=== PATIENT | male | born 1955 | race Caucasian/White ===

== ENCOUNTER 2019-06-29 14:00 | Inpatient (IN) | payer OTHER ==
[2019-06-29 14:16] VITALS: BMI 39.5
[2019-06-29] MEDS ORDERED: SODIUM CHLORIDE 0.9% 500 ML INFUS.BAG IV ONE (14:20)
[2019-06-29] MEDS ORDERED: dilTIAZem HCL 50 MG/10 ML - 10 ML VIAL IVPUSH ONE (14:20)
[2019-06-29] MEDS ORDERED: dilTIAZem HCL 50 MG/10 ML - 10 ML VIAL ONE (14:39)
--- NOTE | 2019-06-29 14:43 | PDOC ---
History of Present Illness - General Chief Complaint: Lightheaded Stated Complaint: DIZZY WEAK OFF MEDS FOR WEEK Time Seen by Provider: 06/29/19 14:19 History Source: Patient Exam Limitations: No Limitations - History of Present Illness Initial Comments: 06/29/19 15:09 HPI 63-year-old male with history of morbid obesity, atrial fibrillation on Eliquis , hypertension, hyperlipidemia, diabetes on Januvia presenting with dizziness x1 month. Dizziness is associated with frequent falls but no syncope no head injury or LOC. He also notes chronic tingling in his extremities. He also endorses polyuria and polydipsia. He ran out of his medications including Januvia, Eliquis, metformin, lisinopril and metoprolol in the past 1 week. He went to see his primary care doctor today and was noted to be in atrial fibrillation rapid ventricular response. Denies fever, chills, chest pain, SOB, palpitation, N, V, D, abdominal pain, bladder and bowel problems, focal weakness/paresthesias, leg swelling/pain, rash. does not monitor blood sugar or blood pressure. Allergies: None Past Medical History/PSH: as above Social history: Lives with family. No tobacco, ETOH or drug use. Meds: as documented in EMR Family history: noncontributory PMD: Dr Holland Corrections Officer: none 06/29/19 15:11 06/29/19 15:16 06/29/19 17:22 Past History - Past Medical History Allergies/Adverse Reactions: Allergies Allergy/AdvReac Type Severity Reaction Status Date / Time No Known Allergies Allergy Unverified 06/29/19 14:05 Home Medications: Ambulatory Orders Apixaban [Eliquis] 5 mg PO BID 06/29/19 Lisinopril [Prinivil] 5 mg PO DAILY 06/29/19 Metoprolol Succinate [Toprol Xl] 50 mg PO BID 06/29/19 Sitagliptin Phosphate [Januvia] 100 mg PO DAILY 06/29/19 metFORMIN HCL [Metformin HCl] 1,000 mg PO BID 06/29/19 Cardiac Disorders: Yes (A FIB) COPD: No Diabetes: Yes - Psycho Social/Smoking Cessation Hx Smoking History: Never smoked Information on smoking cessation initiated: No Hx Alcohol Use: Yes (RARELY SOCIAL) Drug/Substance Use Hx: No Review of Systems - Review of Systems Able to Perform ROS?: Yes Comments:: 06/29/19 17:22 Review of systems Constitutional: no fevers or chills. No weakness HEENT: no headache No visual/hearing disturbances. +dizziness. CVS: no cp or syncope. no palpitations. Resp: no sob. No cough. Gastrointestinal: no abdominal pain, nausea, vomiting, diarrhea. Genitourinary: no urinary sx, hematuria. no incontinence or retention. MUSCULOSKELETAL: No joint pain and swelling. No neck or back pain. SKIN: no redness or skin changes, no discharge, no rash. No wounds. Hematologic: no easy bruising/bleeding. NEUROLOGIC: No headache, LOC or altered mental status. No weakness, +chronic extremity numbness or tingling. Endocrine: +polyuria, +polydypsia. +hyperglycemia. Allergic/Immunologic: no allergies All other systems reviewed and negative, or as documented in HPI. *Physical Exam - Vital Signs Last Vital Signs Temp Pulse Resp BP Pulse Ox 98.1 F 108 H 20 127/85 97 06/29/19 14:03 06/29/19 15:00 06/29/19 15:00 06/29/19 15:00 06/29/19 14:46 - Physical Exam 06/29/19 17:22 Physical exam General: Well appearing, awake and alert, NAD. HEENT: NCAT, PERRL, EOMI, clear conjunctiva, anicteric, moist mucus membranes, clear oropharynx, no oral lesions.. Neck: neck supple, FROM Resp: CTAB, normal and even respirations, no respiratory distress CVS: RRR, no murmurs, 2+ peripheral pulses throughout, no peripheral edema Abdomen: soft, morbidly obese, nontender, abdominal striae. no rebound or guarding. Back: nontender, normal inspection and ROM MSK: no edema, WHITE x4, ROM intact. No clubbing or cyanosis. normal bulk and tone. Extremities: no calf tenderness Neuro: alert, oriented appropriately; no focal neurologic deficits Psych: Calm and cooperative Skin: warm and well perfused, cap refill <2 sec, normal color, no rash or skin discoloration. Heart Score/ECG Review #1 ECG reviewed & interpreted by me at: 14:20 Compared to previous ECG there are: Previous ECG unavail 06/29/19 15:12 EKG atrial fibrillation at RVR, 158 bpm, no interval abnormalities, narrow QRS, ST and T wave segments and morphology normal. Nonspecific T wave abnormalities, likely rate related. ED Treatment Course - LABORATORY CBC & Chemistry Diagram: 06/29/19 14:30 06/29/19 14:30 - ADDITIONAL ORDERS Additional order review: Laboratory Results 06/29/19 06/29/19 06/29/19 14:30 14:30 14:30 PT with INR 12.1 INR 1.08 PTT (Actin FS) 29.5 Sodium 131 L Potassium 4.2 Chloride 101 Carbon Dioxide 22 Anion Gap 8 BUN 19.0 H Creatinine 0.9 Est GFR (CKD-EPI)AfAm 106.46 Est GFR (CKD-EPI)NonAf 91.86 Random Glucose 311 H Calcium 9.1 Magnesium 1.8 Total Bilirubin 1.1 H AST 18 ALT 21 Alkaline Phosphatase 64 Creatine Kinase 113 Troponin I < 0.03 Total Protein 6.9 Albumin 4.0 06/29/19 14:30 RBC 5.67 H MCV 86.9 MCHC 33.7 RDW 12.6 MPV 9.6 Neutrophils % 66.1 Lymphocytes % 21.7 Monocytes % 8.8 Eosinophils % 2.9 Basophils % 0.5 - RADIOLOGY Radiology Studies Ordered: Category Date Time Status CHEST X-RAY PORTABLE* [RAD] Stat Radiology 06/29/19 15:08 Taken Radiograph Interpretation: 06/29/19 16:00 Interpreted by ED Physician: CXR (2 view): no acute abnormality: no infiltrates , bones appear intact and structures normal alignment, cardiac silhouette within normal limits. no free air under diaphragm, no pneumothorax. Cardiomegaly, low lung volumes could be habitus or inspiratory related, changed from prior in 2009 - Medications Given in the ED: ED Medications Discontinued Medications Generic Name Dose Route Start Last Admin Trade Name Freq PRN Reason Stop Dose Admin Diltiazem HCl 20 mg 06/29/19 14:20 06/29/19 14:45 Cardizem Injection - IVPUSH 06/29/19 14:21 20 mg ONCE ONE Administration Lisinopril 5 mg 06/29/19 16:28 06/29/19 16:45 Prinivil PO 06/29/19 16:29 5 mg ONCE ONE Administration Metformin HCl 1,000 mg 06/29/19 16:28 06/29/19 16:45 Glucophage - PO 06/29/19 16:29 1,000 mg ONCE ONE Administration Metoprolol Tartrate 50 mg 06/29/19 16:29 06/29/19 16:46 Lopressor - PO 06/29/19 16:30 50 mg ONCE ONE Administration Sodium Chloride 1,000 ml 06/29/19 14:20 06/29/19 14:37 Normal Saline - IV 06/29/19 14:21 1,000 ml ONCE ONE Administration Medical Decision Making - Medical Decision Making 06/29/19 15:12 Vital Signs Temp Pulse Resp BP Pulse Ox 98.1 F 108 H 20 127/85 97 06/29/19 14:03 06/29/19 15:00 06/29/19 15:00 06/29/19 15:00 06/29/19 14:46 Vital signs notable for normal tension, no respiratory distress. However he is in atrial fibrillation RVR, up to 140 to 160 bpm. Patient has no acute symptoms including chest pain or shortness of breath, no syncope. He has been having dizziness over the past 1 month and is been associated with frequent falls but no head injury or LOC. No altered mental status or seizure activity, defer CT imaging at this time. We will rate control with diltiazem IV. BP will allow for it. We will also reinitiate his home medications as he has been off of them for about 1 week as likely contributors for his symptoms. restarted on his home meds, Eliquis 5mg, lisinopril 5mg, januvia 100mg, metformin 1000mg, metoprolol 50mg x1 dose labs and lytes wnl. trop neg. +hyperglycemic >300, given fluids, and recheck BGM. Cr and remainder of lytes are wnl. no evidence to suggest HHS or DKA, no infectious sx. no cardiopulmonary sx. Will admit to hospitalist service for medical management of A. fib RVR, cardiology consultation, telemetry, close monitoring and reinitiation of his medications. 06/29/19 16:35 06/29/19 16:36 Discharge - Discharge Information Problems reviewed: Yes Clinical Impression/Diagnosis: Atrial fibrillation with rapid ventricular response, Hyperglycemia Condition: Guarded - Admission Yes - Follow up/Referral Referrals: Kevin Holland MD [Primary Care Provider] - - Patient Discharge Instructions - Post Discharge Activity
[2019-06-29 15:39] LABS: BASO % 0.5 % (0-2.0); EOS % 2.9 % (0-4.5); HEMATOCRIT 49.2 % (35.4-49); HEMOGLOBIN 16.6 GM/dl (11.7-16.9); LYMPH % 21.7 % (8-40); MCH 29.3 pg (25.7-33.7); MCHC 33.7 g/dl (32.0-35.9); MEAN CELL VOLUME 86.9 fl (80-96); MEAN PLT VOLUME 9.6 fl (7.5-11.1); MONO % 8.8 % (3.8-10.2); NEUT % 66.1 % (42.8-82.8); PLATELET COUNT 212 K/MM3 (134-434); RBC 5.67 M/mm3 (4.00-5.60); RDW 12.6 % (11.9-15.9); WHITE BLOOD COUNT 6.8 K/mm3 (4.0-10.8)
[2019-06-29 15:47] LABS: BILIRUBIN,TOTAL 1.1 mg/dl (0.2-1); CALCIUM 9.1 mg/dl (8.5-10); CREATININE 0.9 mg/dl (0.55-1.3); MAGNESIUM 1.8 mg/dL (1.8-2.4); POTASSIUM 4.2 mmol/L (3.5-5.1); TOT PROT 6.9 g/dl (6.4-8.2)
[2019-06-29 15:51] LABS: ACTIVATED PTT 29.5 SECONDS (25.2-36.5)
[2019-06-29 15:55] LABS: INR 1.08 (0.82-1.09); PROTHROMBIN TIME (PATIENT) 12.1 SEC (10.2-13.0)
[2019-06-29] MEDS ORDERED: metFORMIN HCL 500 MG TABLET (FP) PO ONE (16:28)
[2019-06-29] MEDS ORDERED: LISINOPRIL 5 MG TABLET (FP) PO ONE (16:28)
[2019-06-29] MEDS ORDERED: METOPROLOL TARTRATE 50 MG TABLET (FP) PO ONE (16:29)
[2019-06-29] MEDS ORDERED: metFORMIN HCL 500 MG TABLET (FP) ONE (16:42)
[2019-06-29] MEDS ORDERED: LISINOPRIL 5 MG TABLET (FP) ONE (16:42)
[2019-06-29] MEDS ORDERED: METOPROLOL TARTRATE 50 MG TABLET (FP) ONE (16:43)
--- NOTE | 2019-06-29 17:07 | HP ---
CHIEF COMPLAINT: Dizziness PCP: Dr. Holland HISTORY OF PRESENT ILLNESS: 63 year-old male with a PMH significant for HTN, HLD, atrial fibrillation on Eliquis, Type II NIDDM, and morbid obesity. Patient reports dizziness x1 month. He has been experiencing frequent falls without syncope, LOC, or head trauma. He also notes chronic tingling in his extremities. He endorses polyuria and polydipsia. In the past week, he ran out of his medications including Januvia, Eliquis, metformin, lisinopril and metoprolol. He went to see his PCP and was noted to be in atrial fibrillation with rapid ventricular response. He was sent to the ED. Denies fever, chills, chest pain, SOB, palpitation, N, V, D, abdominal pain, bladder and bowel problems, focal weakness/paresthesias, leg swelling/pain, rash. ER course was notable for: (1) HR 140, BP stable 138/84 (2) Diltiazem IVP 20mg x 1; metoprolol PO 50mg x 1 Recent Travel: No PAST MEDICAL HISTORY: Hypertension Hyperlipidemia Atrial fibrillation Type II NIDDM PAST SURGICAL HISTORY: None reported Social History: , lives with , 2 children, new grandchild; works for the [employer] Smoking: never Alcohol: rare Drugs: no Family history: other a&w 75; father a&w 80; 5 siblings Allergies No Known Allergies Allergy (Unverified 06/29/19 14:05) HOME MEDICATIONS: Home Medications Medication Instructions Recorded Apixaban [Eliquis] 5 mg PO BID 06/29/19 Lisinopril [Prinivil] 5 mg PO DAILY 06/29/19 Metoprolol Succinate [Toprol Xl] 50 mg PO BID 06/29/19 Sitagliptin Phosphate [Januvia] 100 mg PO DAILY 06/29/19 metFORMIN HCL [Metformin HCl] 1,000 mg PO BID 06/29/19 REVIEW OF SYSTEMS CONSTITUTIONAL: Absent: fever, chills, diaphoresis, generalized weakness, malaise, loss of appetite, weight change HEENT: Absent: rhinorrhea, nasal congestion, throat pain, throat swelling, difficulty swallowing, mouth swelling, ear pain, eye pain, visual changes CARDIOVASCULAR: Absent: chest pain, syncope, palpitations, irregular heart rate, lightheadedness , peripheral edema RESPIRATORY: Absent: cough, shortness of breath, dyspnea with exertion, orthopnea, wheezing, stridor, hemoptysis GASTROINTESTINAL: Absent: abdominal pain, abdominal distension, nausea, vomiting, diarrhea, constipation, melena, hematochezia GENITOURINARY: Absent: dysuria, frequency, urgency, hesitancy, hematuria, flank pain, genital pain MUSCULOSKELETAL: Absent: myalgia, arthralgia, joint swelling, back pain, neck pain SKIN: Absent: rash, itching, pallor HEMATOLOGIC/IMMUNOLOGIC: Absent: easy bleeding, easy bruising, lymphadenopathy, frequent infections ENDOCRINE: +polyuria, polydipsia Absent: unexplained weight gain, unexplained weight loss, heat intolerance, cold intolerance NEUROLOGIC: +dizziness, extremity parasthesias, frequent falls Absent: headache, seizure, mental status changes, bladder or bowel incontinence PSYCHIATRIC: Absent: anxiety, depression, suicidal or homicidal ideation, hallucinations. PHYSICAL EXAMINATION Vital Signs - 24 hr 06/29/19 06/29/19 06/29/19 14:03 14:46 14:49 Temperature 98.1 F Pulse Rate 79 Pulse Rate [ 140 H 118 H Apical] Respiratory 20 20 Rate Blood Pressure 126/90 Blood Pressure 138/84 [Left Arm] O2 Sat by Pulse 98 97 Oximetry (%) 06/29/19 15:00 Temperature Pulse Rate Pulse Rate [ 108 H Apical] Respiratory 20 Rate Blood Pressure Blood Pressure 127/85 [Left Arm] O2 Sat by Pulse Oximetry (%) GENERAL: Awake, alert, and fully oriented, in no acute distress. Obese. LUNGS: Breath sounds equal, clear to auscultation bilaterally. No wheezes, and no crackles. No accessory muscle use. HEART: Irregular S1, S2 ABDOMEN: Soft, nontender, not distended MUSCULOSKELETAL: Normal range of motion at all joints. No bony deformities or tenderness. No CVA tenderness. UPPER EXTREMITIES: 2+ pulses, warm, well-perfused. No cyanosis. No clubbing. No peripheral edema. LOWER EXTREMITIES: 2+ pulses, warm, well-perfused. No calf tenderness. No peripheral edema. NEUROLOGICAL: Cranial nerves II-XII intact. Normal speech. Laboratory Results - last 24 hr 06/29/19 06/29/19 06/29/19 14:30 14:30 14:30 WBC 6.8 RBC 5.67 H Hgb 16.6 Hct 49.2 H MCV 86.9 MCH 29.3 MCHC 33.7 RDW 12.6 Plt Count 212 MPV 9.6 Absolute Neuts (auto) 4.5 Neutrophils % 66.1 Lymphocytes % 21.7 Monocytes % 8.8 Eosinophils % 2.9 Basophils % 0.5 PT with INR INR PTT (Actin FS) Sodium 131 L Potassium 4.2 Chloride 101 Carbon Dioxide 22 Anion Gap 8 BUN 19.0 H Creatinine 0.9 Est GFR (CKD-EPI)AfAm 106.46 Est GFR (CKD-EPI)NonAf 91.86 Random Glucose 311 H Calcium 9.1 Magnesium 1.8 Total Bilirubin 1.1 H AST 18 ALT 21 Alkaline Phosphatase 64 Creatine Kinase 113 Troponin I < 0.03 Total Protein 6.9 Albumin 4.0 06/29/19 14:30 WBC RBC Hgb Hct MCV MCH MCHC RDW Plt Count MPV Absolute Neuts (auto) Neutrophils % Lymphocytes % Monocytes % Eosinophils % Basophils % PT with INR 12.1 INR 1.08 PTT (Actin FS) 29.5 Sodium Potassium Chloride Carbon Dioxide Anion Gap BUN Creatinine Est GFR (CKD-EPI)AfAm Est GFR (CKD-EPI)NonAf Random Glucose Calcium Magnesium Total Bilirubin AST ALT Alkaline Phosphatase Creatine Kinase Troponin I Total Protein Albumin ASSESSMENT/PLAN 63 year-old male with a PMH significant for HTN, HLD, atrial fibrillation on Eliquis, Type II NIDDM, and morbid obesity. Admitted for afib with RVR. Atrial fibrillation with RVR --afib is chronic but off meds so rate to 140 on admission; in ED given diltiazem IVP 20mg x 1 and metoprolol PO 50mg x 1, and rate improved to 100s; patient is asymptomatic --restart home lisinopril, Toprol XL --telemetry monitoring --continue Eliquis Hypertension --continue lisinopril, ToprolXL Hyperlipidemia --not on statin therapy Type II NIDDM --Novolog sliding scale coverage DVT prophylaxis: continue Eliquis Visit type - Emergency Visit Emergency Visit: Yes ED Registration Date: 06/29/19 Care time: The patient presented to the Emergency Department on the above date and was hospitalized for further evaluation of their emergent condition. - New Patient This patient is new to me today: Yes Date on this admission: 07/03/19 - Critical Care Critical Care patient: No
[2019-06-29] MEDS ORDERED: APIXABAN 5 MG TABLET PO SCH (22:00)
[2019-06-29] MEDS: metoPROLOL SUCCINATE 25 MG TAB.SR.24H (FP) PO SCH (22:09)
[2019-06-29] MEDS: APIXABAN 5 MG TABLET PO SCH (22:09)
[2019-06-29] MEDS ORDERED: INSULIN (NOVOLOG) ASPART 100 UNITS/ML 10ML VIAL ONE (23:26)
[2019-06-29] MEDS: INSULIN SLIDING SCALE (NOVOLOG) 1 VIAL SQ SCH (23:31)
[2019-06-30] MEDS ORDERED: MAGNESIUM SULF 50% (8.12 MEQ/2 ML-1 GM VIAL) IVPB ONE (00:40)
[2019-06-30] MEDS ORDERED: MAGNESIUM SULF 50% (8.12 MEQ/2 ML-1 GM VIAL) ONE (01:38)
[2019-06-30] MEDS: INSULIN SLIDING SCALE (NOVOLOG) 1 VIAL SQ SCH ×2 (07:49→12:59)
[2019-06-30 07:53] LABS: ALBUMIN 3.7 g/dl (3.4-5.0); BILIRUBIN,TOTAL 1.1 mg/dl (0.2-1); CALCIUM 8.8 mg/dl (8.5-10); MAGNESIUM 1.9 mg/dL (1.8-2.4); POTASSIUM 4.5 mmol/L (3.5-5.1); TOT PROT 6.4 g/dl (6.4-8.2)
[2019-06-30 08:08] LABS: BASO % 0.4 % (0-2.0); EOS % 3.6 % (0-4.5); HEMATOCRIT 46.8 % (35.4-49); HEMOGLOBIN 15.4 GM/dl (11.7-16.9); LYMPH % 23.9 % (8-40); MCH 28.9 pg (25.7-33.7); MCHC 32.8 g/dl (32.0-35.9); MEAN PLT VOLUME 9.7 fl (7.5-11.1); MONO % 8.6 % (3.8-10.2); NEUT % 63.5 % (42.8-82.8); PLATELET COUNT 197 K/MM3 (134-434); RBC 5.32 M/mm3 (4.00-5.60); RDW 12.7 % (11.9-15.9); WHITE BLOOD COUNT 5.6 K/mm3 (4.0-10.8)
[2019-06-30 08:21] LABS: ACTIVATED PTT 34.1 SECONDS (25.2-36.5)
[2019-06-30 08:26] LABS: INR 1.28 (0.82-1.09); PROTHROMBIN TIME (PATIENT) 14.3 SEC (10.2-13.0)
[2019-06-30 09:07] VITALS: TEMP 98.3
[2019-06-30] MEDS ORDERED: LISINOPRIL 5 MG TABLET (FP) PO SCH (10:00)
[2019-06-30] MEDS: metoPROLOL SUCCINATE 25 MG TAB.SR.24H (FP) PO SCH (10:54)
[2019-06-30] MEDS: APIXABAN 5 MG TABLET PO SCH (10:54)
[2019-06-30 14:10] VITALS: BP 134/51; PULSE 109
--- NOTE | 2019-06-30 14:30 | DS ---
Physical Exam: SUBJECTIVE: Patient seen and examined OBJECTIVE: Vital Signs Period Temp Pulse Resp BP Sys/Wright Pulse Ox Last 24 Hr 97.2 F-98.3 F 84-140 14-20 113-138/51-94 96-100 PHYSICAL EXAM GENERAL: The patient is awake, alert, and fully oriented, in no acute distress. HEAD: Normal with no signs of trauma. EYES: PERRL, extraocular movements intact, sclera anicteric, conjunctiva clear. ENT: Ears normal, nares patent, oropharynx clear without exudates, moist mucous membranes. NECK: Trachea midline, full range of motion, supple. LUNGS: Breath sounds equal, clear to auscultation bilaterally, no wheezes, no crackles, no accessory muscle use. HEART: Regular rate and rhythm, S1, S2 without murmur, rub or gallop. ABDOMEN: Soft, nontender, nondistended, normoactive bowel sounds, no guarding, no rebound, no hepatosplenomegaly, no masses. EXTREMITIES: 2+ pulses, warm, well-perfused, no edema. NEUROLOGICAL: Cranial nerves II through XII grossly intact. Normal speech, gait not observed. PSYCH: Normal mood, normal affect. SKIN: Warm, dry, normal turgor, no rashes or lesions noted. LABS Laboratory Results - last 24 hr 06/29/19 06/29/19 06/29/19 14:30 14:30 14:30 WBC 6.8 RBC 5.67 H Hgb 16.6 Hct 49.2 H MCV 86.9 MCH 29.3 MCHC 33.7 RDW 12.6 Plt Count 212 MPV 9.6 Absolute Neuts (auto) 4.5 Neutrophils % 66.1 Lymphocytes % 21.7 Monocytes % 8.8 Eosinophils % 2.9 Basophils % 0.5 PT with INR INR PTT (Actin FS) Sodium 131 L Potassium 4.2 Chloride 101 Carbon Dioxide 22 Anion Gap 8 BUN 19.0 H Creatinine 0.9 Est GFR (CKD-EPI)AfAm 106.46 Est GFR (CKD-EPI)NonAf 91.86 POC Glucometer Random Glucose 311 H Hemoglobin A1c % Calcium 9.1 Magnesium 1.8 Total Bilirubin 1.1 H AST 18 ALT 21 Alkaline Phosphatase 64 Creatine Kinase 113 Troponin I < 0.03 Total Protein 6.9 Albumin 4.0 06/29/19 06/29/19 06/30/19 14:30 23:18 07:08 WBC RBC Hgb Hct MCV MCH MCHC RDW Plt Count MPV Absolute Neuts (auto) Neutrophils % Lymphocytes % Monocytes % Eosinophils % Basophils % PT with INR 12.1 INR 1.08 PTT (Actin FS) 29.5 Sodium Potassium Chloride Carbon Dioxide Anion Gap BUN Creatinine Est GFR (CKD-EPI)AfAm Est GFR (CKD-EPI)NonAf POC Glucometer 296 238 Random Glucose Hemoglobin A1c % Calcium Magnesium Total Bilirubin AST ALT Alkaline Phosphatase Creatine Kinase Troponin I Total Protein Albumin 06/30/19 06/30/19 06/30/19 07:30 07:30 07:30 WBC 5.6 RBC 5.32 Hgb 15.4 Hct 46.8 MCV 88.0 MCH 28.9 MCHC 32.8 RDW 12.7 Plt Count 197 MPV 9.7 Absolute Neuts (auto) 3.6 Neutrophils % 63.5 Lymphocytes % 23.9 Monocytes % 8.6 Eosinophils % 3.6 Basophils % 0.4 PT with INR 14.3 H INR 1.28 H PTT (Actin FS) 34.1 Sodium 134 L Potassium 4.5 Chloride 101 Carbon Dioxide 25 Anion Gap 8 BUN 18.0 Creatinine 1.0 Est GFR (CKD-EPI)AfAm 93.73 Est GFR (CKD-EPI)NonAf 80.87 POC Glucometer Random Glucose 247 H Hemoglobin A1c % Calcium 8.8 Magnesium 1.9 Total Bilirubin 1.1 H AST 15 ALT 18 Alkaline Phosphatase 52 D Creatine Kinase Troponin I Total Protein 6.4 Albumin 3.7 06/30/19 06/30/19 06/30/19 07:30 07:30 12:35 WBC RBC Hgb Hct MCV MCH MCHC RDW Plt Count MPV Absolute Neuts (auto) Neutrophils % Lymphocytes % Monocytes % Eosinophils % Basophils % PT with INR INR PTT (Actin FS) Sodium Potassium Chloride Carbon Dioxide Anion Gap BUN Creatinine Est GFR (CKD-EPI)AfAm Est GFR (CKD-EPI)NonAf POC Glucometer 267 Random Glucose Hemoglobin A1c % 11.2 H Calcium Magnesium Total Bilirubin AST ALT Alkaline Phosphatase Creatine Kinase Troponin I < 0.03 Total Protein Albumin HOSPITAL COURSE: Date of Admission:06/29/19 Date of Discharge: 06/30/19 Pre-hospital course 63 year-old male with a PMH significant for HTN, HLD, atrial fibrillation on Eliquis, Type II NIDDM, and morbid obesity. Patient reports dizziness x1 month. He has been experiencing frequent falls without syncope, LOC, or head trauma. He also notes chronic tingling in his extremities. He endorses polyuria and polydipsia. In the past week, he ran out of his medications including Januvia, Eliquis, metformin, lisinopril and metoprolol. He went to see his PCP and was noted to be in atrial fibrillation with rapid ventricular response. He was sent to the ED. Denies fever, chills, chest pain, SOB, palpitation, N, V, D, abdominal pain, bladder and bowel problems, focal weakness/paresthesias, leg swelling/pain, rash. ER course (1) HR 140, BP stable 138/84 (2) Diltiazem IVP 20mg x 1; metoprolol PO 50mg x 1 Subsequent hospital course 63 year-old male with a PMH significant for HTN, HLD, atrial fibrillation on Eliquis, Type II NIDDM, and morbid obesity. Admitted for afib with RVR. Atrial fibrillation with RVR --afib is chronic but off meds so rate to 140 on admission; in ED given diltiazem IVP 20mg x 1 and metoprolol PO 50mg x 1, and rate improved to 100s; patient is asymptomatic --06/30 Echo: LV normal, EF 55-60%; RV normal; LAE; trace TR --restarted home lisinopril, Toprol XL --restarted Eliquis --on discharge scripts called in for all meds; f/u with PCP Hypertension --continued lisinopril, ToprolXL Hyperlipidemia --not on statin therapy Type II NIDDM --Novolog sliding scale coverage Minutes to complete discharge: 35 Discharge Summary Problems reviewed: Yes Reason For Visit: DIZZY WEAK OFF MEDS FOR WEEK Current Active Problems Atrial fibrillation with rapid ventricular response (Acute) Hyperglycemia (Acute) Condition: Improved - Instructions Referrals: Kevin Holland MD [Primary Care Provider] - Disposition: HOME - Home Medications Comprehensive Discharge Medication List: Ambulatory Orders Apixaban [Eliquis] 5 mg PO BID 06/29/19 Lisinopril [Prinivil] 5 mg PO DAILY 06/29/19 Metoprolol Succinate [Toprol Xl] 50 mg PO BID 06/29/19 Sitagliptin Phosphate [Januvia] 100 mg PO DAILY 06/29/19 metFORMIN HCL [Metformin HCl] 1,000 mg PO BID 06/29/19 This patient is new to me today: No Emergency Visit: Yes ED Registration Date: 06/29/19 Care time: The patient presented to the Emergency Department on the above date and was hospitalized for further evaluation of their emergent condition. Critical Care patient: No - Discharge Referral Referred to [facility] Yes Physician Referral: Kevin Holland MD (Int Med)
--- NOTE | 2019-06-30 14:45 | EKG ---
Test Reason : Blood Pressure : / mmHG Vent. Rate : 158 BPM Atrial Rate : 163 BPM P-R Int : 000 ms QRS Dur : 096 ms QT Int : 250 ms P-R-T Axes : 000 120 -16 degrees QTc Int : 405 ms ATRIAL FIBRILLATION WITH RAPID VENTRICULAR RESPONSE RIGHT AXIS DEVIATION ABNORMAL QRS-T ANGLE, CONSIDER PRIMARY T WAVE ABNORMALITY ABNORMAL ECG NO PREVIOUS ECGS AVAILABLE Confirmed by CON ALMAZAN MD ([id number]) on 06/30/2019 2:45:22 PM Referred By: ABRAN LEE Confirmed By:CON ALMAZAN MD
--- NOTE | 2019-06-30 14:46 | EKG ---
Test Reason : Blood Pressure : / mmHG Vent. Rate : 061 BPM Atrial Rate : 061 BPM P-R Int : 144 ms QRS Dur : 084 ms QT Int : 390 ms P-R-T Axes : 054 059 039 degrees QTc Int : 392 ms NORMAL SINUS RHYTHM NORMAL ECG NO PREVIOUS ECGS AVAILABLE Confirmed by CON ALMAZAN MD ([id number]) on 06/30/2019 2:45:40 PM Referred By: Confirmed By:CON ALMAZAN MD
--- NOTE | 2019-06-30 15:37 | ECHO ---
Name: KADEEM QUICK Exam:Adult Echocardiogram Study Date: 06/30/2019 10:59 AM Age: 63 yrs Reason For Study: A-Fib Height: 74 in Weight: 326 lb BSA: 2.7 m2 MMode/2D Measurements & Calculations IVSd: 1.1 cm Ao root diam: 3.6 cm LVIDd: 6.1 cm LA dimension: 4.4 cm LVIDs: 4.4 cm LVPWd: 0.87 cm EDV(Teich): 189.1 ml LVOT diam: 2.0 cm ESV(Teich): 86.2 ml Doppler Measurements & Calculations MV E max trisha: 96.9 cm/sec MV A max trisha: 44.4 cm/sec MV dec slope: 466.7 cm/sec2 MV E/A: 2.2 Ao V2 max: 106.0 cm/sec LV V1 max P.4 mmHg Ao max P.5 mmHg LV V1 max: 78.0 cm/sec CHARLENE(V,D): 2.3 cm2 MR max trisha: 209.4 cm/sec PA V2 max: 95.5 cm/sec MR max P.5 mmHg PA max P.6 mmHg PI end-d trisha: 62.8 cm/sec Procedure A complete two-dimensional transthoracic echocardiogram was performed (2D, M-mode, Doppler and color flow Doppler). The study was technically difficult with many images being suboptimal in quality. Left Ventricle The left ventricular size, thickness and function are normal. The left ventricular ejection fraction is normal. Ejection Fraction = 55-60%. No regional wall motion abnormalities noted. Right Ventricle The right ventricle is normal in size and function. Atria The left atrium is mildly dilated. Right atrium not well visualized. Mitral Valve There is no mitral regurgitation noted. Tricuspid Valve There is trace tricuspid regurgitation. There was insufficient TR detected to calculate RV systolic p ressure. Aortic Valve No hemodynamically significant valvular aortic stenosis. No aortic regurgitation is present. Pulmonic Valve There is no pulmonic valvular regurgitation. Great Vessels The aortic root is normal size. Pericardium/Pleura There is no pericardial effusion. Interpretation Summary The study was technically difficult with many images being suboptimal in quality. The left ventricular size, thickness and function are normal The right ventricle is normal in size and function. The left atrium is mildly dilated. There is trace tricuspid regurgitation. MD Galen Solis 06/30/2019 03:36 PM
== END 2019-06-30 14:52 | disposition home or self-care (01) | DRG 201 ==
LOC: FER 14:00 → FM/S 19:34
PROVIDERS: ADMIT Internal Medicine; ATTEND Nurse Practitioner Acute Care
DX: I48.91 Unspecified atrial fibrillation (principal); R42 Dizziness and giddiness; I10 Essential (primary) hypertension; E78.5 Hyperlipidemia, unspecified; E11.9 Type 2 diabetes mellitus without complications; E66.9 Obesity, unspecified; Z68.39 Body mass index [BMI] 39.0-39.9, adult
CPT/HCPCS: 36415; 71045-TC-FY; 80053; 82550; 82962; 83036; 83735; 84484; 85025; 85610; 85730; 93005; 93306-TC; 93970-TC; 99285-25